=== PATIENT | male | born 2000 | race Caucasian/White ===

== ENCOUNTER 2023-05-05 12:25 | Emergency (ER) | payer MEDICAID ==
[~2023-05-05] VITALS: Ht 170.2 cm; Wt 77.1 kg
[2023-05-05 12:42] VITALS: BP_SYST 156; PULSE 68; RESP 18; TEMP 97.5; O2SAT 96
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
--- NOTE | 2023-05-05 12:51 | NUR ---
MD DR YOUNG AT BEDSIDE
[2023-05-05] MEDS ORDERED: ASPIRIN 81 MG TAB.CHEW PO ONE (13:00)
[2023-05-05 13:20] LABS: BASOPHILS % (AUTO) 0.5 % (0.0-2.0); EOSINOPHILS # (AUTO) 0.3 K/uL (0.0-0.4); EOSINOPHILS % (AUTO) 4.4 % (0.0-4.0); HEMATOCRIT 47.1 % (36-54); HEMOGLOBIN 15.5 g/dL (14.0-18.0); LYMPHOCYTES # (AUTO) 2.1 K/uL (1.0-5.5); LYMPHOCYTES % (AUTO) 27.3 % (20.5-51.5); MEAN CORPUSCULAR HEMOGLOBIN 30 pg (27-31); MEAN CORPUSCULAR HGB CONC 33 % (32-36); MEAN CORPUSCULAR VOLUME 91 fL (79.0-98.0); MONOCYTES # (AUTO) 0.7 K/uL (0.0-1.0); MONOCYTES % (AUTO) 9.1 % (1.7-9.3); NEUTROPHILS # (AUTO) 4.5 K/uL (1.8-7.7); NEUTROPHILS % (AUTO) 58.7 % (40.0-70.0); PLATELET COUNT (AUTO) 356 K/uL (130-430); RED BLOOD CELL COUNT(AUTO) 5.19 MIL/uL (4.2-6.2); RED CELL DISTRIBUTION WIDTH 13.7 % (9.0-15.0); WHITE BLOOD COUNT (AUTO) 7.7 K/uL (4.8-10.8)
[2023-05-05 13:39] LABS: ANION GAP 9 (5-15); CALCIUM 9.4 mg/dL (8.4-11.0); CHLORIDE 100 mmol/L (98-107); CREATININE 1.08 mg/dL (0.55-1.30); GFR AFRICAN AMERICAN 111 mL/min (>90); GLUCOSE 86 mg/dL (74-106); UREA NITROGEN, BLOOD 17 mg/dL (8-21)
[2023-05-05 13:52] LABS: ALANINE AMINOTRANSFERASE 18 U/L (12-78); ALBUMIN 4.6 g/dL (3.4-4.8); ASPARTATE AMINOTRANSFERASE 14 U/L (10-37); TOTAL BILIRUBIN 1.3 mg/dL (0.0-1.0)
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
[2023-05-05 14:41] VITALS: BP_SYST 156; PULSE 68; RESP 18; TEMP 97.5; O2SAT 96
--- NOTE | 2023-05-05 14:41 | NUR ---
Patient given written and verbal discharge instructions and verbalizes understanding. ER MD DR YOUNG discussed with patient the results and treatment provided. Patient in stable condition. ID arm band removed. Patient educated on pain management and to follow up with PMD AND [facility] for questions provided and answered. Medication side effect fact sheet provided.
== END 2023-05-05 14:41 | disposition home or self-care (01) ==
LOC: SED 12:25
DX: R55 Syncope and collapse (principal); I10 Essential (primary) hypertension; Z79.899 Other long term (current) drug therapy
CPT/HCPCS: 36415; 71045; 80053; 83880; 84484; 85025; 93005; 99285